=== PATIENT | male | born 1950 | race Caucasian/White ===

== ENCOUNTER 2019-11-10 16:12 | Inpatient (IN) | payer MEDICARE ==
[~2019-11-10] VITALS: Ht 180.3 cm; Wt 82.0 kg
[2019-11-10] VITALS (204 sets, daily range): BP systolic 153; BP diastolic 78; PULSE 58; TEMP 98.3; O2SAT 79–100
[~2019-11-10 16:12] MED LIST: CARDIZEM CD360 MG PO; COUMADIN 77.5 MG/TAB PO; DIGOXIN PO; MVI; TOPROL XL25 MG PO
[2019-11-10] MEDS ORDERED: LANOXIN 0.25M0.25 MG PO (17:39)
[2019-11-10] MEDS ORDERED: LASIX 40MG TABL40 MG PO (17:39)
[2019-11-10] MEDS ORDERED: PRINIVIL20 MG PO (17:39)
[2019-11-10] MEDS ORDERED: TOPROL XL 50MG50 MG PO (17:40)
[2019-11-10 17:46] LABS: BASO # 0.1 (0.0-0.2); BASO % 0.9 % (0.0-2.0); EOS # 0.1 (0.0-0.7); EOS % 0.6 % (0-4.0); GRAN # 8.3 (1.4-6.5); GRAN % 78.5 % (42.2-75.2); HEMOGLOBIN 10.3 g/dl (13.5-18.0); LYMPH # 1.2 (1.2-3.4); LYMPH % 11.3 % (20.0-51.0); MEAN CELL VOLUME 104 fl (80.0-100.0); MEAN CORPUSCULAR HEMOGLOBIN 34 pg (27.0-31.0); MEAN CORPUSCULAR HGB CONC 32 g/dl (33.0-37.0); MEAN PLATELET VOLUME 10.9 fl (7.4-10.4); MONO # 0.9 (0.1-0.6); MONO % 8.1 % (1.7-9.3); PLATELET COUNT 234 K/mm3 (130-400); RED BLOOD COUNT 3.07 M/mm3 (4.20-5.60); REDCELL DISTRIBUTION WIDTH-CV 13.5 % (11.5-14.5)
[2019-11-10 17:51] LABS: HEMATOCRIT 31.8 % (42.0-52.0)
[2019-11-10 17:55] LABS: INR 2.9 (0.8-3.0); PROTHROMBIN TIME 34.4 SECONDS (9.7-12.8)
[2019-11-10 17:57] LABS: PARTIAL THROMBOPLASTIN TIME 40.6 SECONDS (26.0-37.0)
[2019-11-10 18:01] LABS: ALBUMIN 4.1 gm/dL (3.5-5.0); BILIRUBIN,TOTAL 0.4 mg/dL (0.0-1.0); CALCIUM 8.9 mg/dL (8.4-10.2); CREATININE, serum 2.18 (0.66-1.25); MAGNESIUM 1.3 mg/dL (1.6-2.3); PHOSPHOROUS 2.3 mg/dL (2.5-4.5)
[2019-11-10 18:05] LABS: POTASSIUM 5.8 mmol/L (3.4-5.0)
--- NOTE | 2019-11-10 20:23 | NUR ---
PT arrived onto unit via ER bed accompanied by MIMI Israel and MIMI Zuñiga. PT ambulated to bed by himself, steady gait. Oriented to room and unit policies, vitals stable, will continue to monitor.
[2019-11-10 21:50] LABS: IRON,SERUM 270 ug/dL (35-150)
[2019-11-10 21:59] LABS: TOTAL IRON BINDING CAPACITY 311 ug/dL (261-462)
[2019-11-11] VITALS (1253 sets, daily range): BP systolic 112–152; BP diastolic 65–92; PULSE 56–89; TEMP 97.6–98.1; O2SAT 67–100
[2019-11-11 01:23] LABS: HEMATOCRIT 25.8 % (42.0-52.0); HEMOGLOBIN 8.6 g/dl (13.5-18.0)
[2019-11-11 07:20] LABS: BASO # 0.1 (0.0-0.2); BASO % 0.6 % (0.0-2.0); EOS # 0.1 (0.0-0.7); EOS % 0.6 % (0-4.0); GRAN # 5.7 (1.4-6.5); GRAN % 61.9 % (42.2-75.2); LYMPH # 2.1 (1.2-3.4); LYMPH % 23.1 % (20.0-51.0); MEAN CELL VOLUME 104 fl (80.0-100.0); MEAN CORPUSCULAR HGB CONC 33 g/dl (33.0-37.0); MEAN PLATELET VOLUME 10.1 fl (7.4-10.4); MONO # 1.2 (0.1-0.6); MONO % 13.3 % (1.7-9.3); PLATELET COUNT 172 K/mm3 (130-400); RED BLOOD COUNT 2.37 M/mm3 (4.20-5.60); REDCELL DISTRIBUTION WIDTH-CV 13.8 % (11.5-14.5)
[2019-11-11 07:21] LABS: HEMATOCRIT 24.6 % (42.0-52.0); HEMOGLOBIN 8.1 g/dl (13.5-18.0); MEAN CORPUSCULAR HEMOGLOBIN 34 pg (27.0-31.0)
[2019-11-11 07:26] LABS: INR 1.4 (0.8-3.0); PROTHROMBIN TIME 17.1 SECONDS (9.7-12.8)
[2019-11-11 07:37] LABS: CALCIUM 8.1 mg/dL (8.4-10.2); CREATININE, serum 2.07 (0.66-1.25); MAGNESIUM 1.8 mg/dL (1.6-2.3); PHOSPHOROUS 2.8 mg/dL (2.5-4.5); POTASSIUM 5.3 mmol/L (3.4-5.0)
--- NOTE | 2019-11-11 08:44 | NUR ---
REPORT GIVEN TO MARIO ALBERTO LE IN ENDO. ECHO BEING DONE AT THIS TIME. CONSENT NOT COMPLETED AND SIGNED AT THIS TIME A PROVIDER HAS NOT COME AND SPOKEN TO PATIENT REGARDING PROCEDURE.
--- NOTE | 2019-11-11 09:10 | NUR ---
PT TAKEN VIA WHEELCHAIR TO [facility] FOR EGD BY BRANT LE.
--- NOTE | 2019-11-11 09:43 | NUR ---
REPORT RECEIVED FROM BRANT LE IN ENDO. EGD FOUND GASTRITIS AND YARITZA ANDERSON TEAR FROM WRETCHING. PATIENT AWAKE, SLIGHTLY DROWSY. VS STABLE.
--- NOTE | 2019-11-11 09:45 | NUR ---
PT RETURNED VIA CART FROM ENDO BY BRANT LE. PT AWAKE, ALERT, AND ORIENTED. PT ABLE TO STAND AND PIVOT TO ICU BED. PT'S VS: 122/69, PULSE 72, RESP 17, O2 SAT 100% ON 2L NC.
--- NOTE | 2019-11-11 10:02 | NUR ---
Solid Waste Disposal Manager met with patient to discuss discharge planning. Patient lives in [place] with his , Renae (ph#[phone]). Patient sees Dr. Rivera for primary care and obtains medications from [facility] with no difficulties. Patient does not have any DME and reports independence with ADLS. Patient does not have Advance Directives and states his will make decisions for him if he cannot make them himself. SW to continue to follow as needed.
--- NOTE | 2019-11-11 19:30 | NUR ---
Bedside report recieved from MIMI Frausto. Patient denies nausea, vomiting, pain, or any discomfort at this time. Requests some ice water and TV guide when able.
[2019-11-11 22:30] LABS: MUCOUS Present /lpf; PH 6 (5-8); SQUAMOUS EPITHELIAL 0-2 /hpf; URINE APPEARANCE Clear; URINE BACTERIA None Seen /hpf; URINE BILIRUBIN Negative (NEGATIVE); URINE BLOOD Negative (NEGATIVE); URINE COLOR Straw; URINE GLUCOSE 1+ (NEGATIVE); URINE KETONE Negative (NEGATIVE); URINE LEUKOCYTE ESTERASE Negative (NEGATIVE); URINE NITRATE Negative (NEGATIVE); URINE PROTEIN(semi-quant) Negative (NEGATIVE); URINE RBC 0-2 /hpf; URINE UROBILINOGEN Negative (NEGATIVE)
[2019-11-11 22:31] LABS: COLLECTION METHOD CLEAN CATCH
--- NOTE | 2019-11-11 23:30 | NUR ---
Patient voiding in urinal at bedside without incident. drug safety assistant showing afib but patient denies any pain or discomfort. Patient concerned with EGD results and how to prevent another tear or bleed. Discussed alcohol consumption as well. Patient has also requested a shower mulptiple times but refused a bed bath when offered. SCDs also refused throughout the night but pleasant and cooperative.
[2019-11-12] VITALS (653 sets, daily range): BP systolic 107–152; BP diastolic 48–83; PULSE 57–89; TEMP 97.5–98.3; O2SAT 58–100
--- NOTE | 2019-11-12 05:00 | NUR ---
Patient is noted to have increased blood pressures and increased heart rate, will continue to monitor. Discussed findings with hospitalist MAGNUS-see orders. patient denies any pain or discomfort, uses urinal in bed without incident, SCDs still refused as well as bed bath.
[2019-11-12 05:30] LABS: BASO # 0.1 (0.0-0.2); BASO % 0.7 % (0.0-2.0); EOS # 0.3 (0.0-0.7); EOS % 2.9 % (0-4.0); GRAN # 7.9 (1.4-6.5); GRAN % 74.5 % (42.2-75.2); LYMPH # 1.3 (1.2-3.4); LYMPH % 12.1 % (20.0-51.0); MEAN CELL VOLUME 105 fl (80.0-100.0); MEAN CORPUSCULAR HGB CONC 32 g/dl (33.0-37.0); MEAN PLATELET VOLUME 10.9 fl (7.4-10.4); MONO % 9.2 % (1.7-9.3); PLATELET COUNT 201 K/mm3 (130-400); RED BLOOD COUNT 2.54 M/mm3 (4.20-5.60); REDCELL DISTRIBUTION WIDTH-CV 14.1 % (11.5-14.5)
[2019-11-12 05:38] LABS: CALCIUM 9.1 mg/dL (8.4-10.2); CREATININE, serum 1.49 (0.66-1.25)
[2019-11-12 06:00] LABS: HEMATOCRIT 26.7 % (42.0-52.0); HEMOGLOBIN 8.6 g/dl (13.5-18.0); MEAN CORPUSCULAR HEMOGLOBIN 34 pg (27.0-31.0)
--- NOTE | 2019-11-12 07:00 | NUR ---
BEDSIDE REPORT RECEIVED FROM MIMI DEE. PATIENT DOING WELL. HR 100s, BP ELEVATED. NO COMPLAINTS AT THIS TIME.
--- NOTE | 2019-11-12 14:59 | NUR ---
REPORT FROM MARY ELLEN AND FOUND NO CHANGE FROM PREVIOUS ASSESSMENTS. PT TO ROOM 346. PT HAD SM LOOSE BLACK TARRY STOOL ON ARRIVING ON UNIT. ASSISTED PT WITH PERICARE. TRANSFERRED TO RECLINER.
--- NOTE | 2019-11-12 20:10 | NUR ---
Pt doing well. Alert and oriented with VSS. Had EGD today and catorized bleeds. Has gout to right knee, coverd in brian wrap. x1 assist. did have a shower this evening with help of nurse. does c/o pain to that right knee. will await orders for tx for gout. stools this shift so far have not been bloody but do have mucous in them. voiding clear, yellow urine. on tele, normal sinus. denies concerns at this time. call light within reach, will continue to monitor
[2019-11-13] VITALS (10 sets, daily range): BP systolic 107–152; BP diastolic 49–69; PULSE 48–79; TEMP 97.2–98.3
--- NOTE | 2019-11-13 03:50 | NUR ---
Pt has had uneventful night. Resting in bed. Call light within reach, will continue to monitor
[2019-11-13 08:16] LABS: BASO % 0.3 % (0.0-2.0); GRAN # 10.6 (1.4-6.5); GRAN % 89.7 % (42.2-75.2); HEMATOCRIT 25.8 % (42.0-52.0); HEMOGLOBIN 8.1 g/dl (13.5-18.0); LYMPH # 0.7 (1.2-3.4); LYMPH % 6.2 % (20.0-51.0); MEAN CELL VOLUME 108 fl (80.0-100.0); MEAN CORPUSCULAR HEMOGLOBIN 34 pg (27.0-31.0); MEAN CORPUSCULAR HGB CONC 31 g/dl (33.0-37.0); MEAN PLATELET VOLUME 11.3 fl (7.4-10.4); MONO # 0.4 (0.1-0.6); MONO % 3.2 % (1.7-9.3); PLATELET COUNT 187 K/mm3 (130-400); RED BLOOD COUNT 2.39 M/mm3 (4.20-5.60); REDCELL DISTRIBUTION WIDTH-CV 14.3 % (11.5-14.5)
[2019-11-13 08:30] LABS: CALCIUM 9.3 mg/dL (8.4-10.2); CREATININE, serum 1.71 (0.66-1.25); POTASSIUM 5.1 mmol/L (3.4-5.0)
[2019-11-13] MEDS ORDERED: LANOX0.0625 PO (11:00)
[2019-11-13] MEDS ORDERED: PREDNISONE20 MG PO (11:01)
[2019-11-13] MEDS ORDERED: FOLIC ACID 11 MG/TA1 PO (11:01)
[2019-11-13] MEDS ORDERED: PROTONIX 40MG T40 MG PO (11:01)
[2019-11-13] MEDS ORDERED: DUO-KAPS1 CAP PO (11:02)
[2019-11-13] MEDS ORDERED: THIAMINE 1100 MG/TAB PO (11:02)
--- NOTE | 2019-11-13 16:45 | NUR ---
Discharge education provided to patient. Educated on when to call provider. Educated on all new medications and follow up appointments. INTs to right ac and left forarm discontinued, catheter tip intact. Denies further needs at this time. Patient out by wheelchair with spouse and surgical staff.
== END 2019-11-13 16:30 | disposition home or self-care (01) | DRG 378 ==
LOC: COL.ER 16:12 → ICU 19:01 → SURG 11-12 14:00
PROVIDERS: Emergency Medicine; Internal Medicine Gastroenterology; Physician Assistant; Student in an Organized Health Care Education/Training Program; ADMIT Hospitalist
PROC: 0DJ08ZZ Inspection of Upper Intestinal Tract, Via Natural or Artificial Opening Endoscopic (ICD-10-PCS; principal; 2019-11-11 09:00)
DX: K92.0 Hematemesis (principal); N17.9 Acute kidney failure, unspecified; K22.6 Gastro-esophageal laceration-hemorrhage syndrome; K29.70 Gastritis, unspecified, without bleeding; N18.3 Chronic kidney disease, stage 3 (moderate); K21.0 Gastro-esophageal reflux disease with esophagitis; R79.1 Abnormal coagulation profile; E87.5 Hyperkalemia; F10.10 Alcohol abuse, uncomplicated; I12.9 Hypertensive chronic kidney disease with stage 1 through stage 4 chronic kidney disease, or unspecified chronic kidney disease; Z66 Do not resuscitate; I48.91 Unspecified atrial fibrillation; E78.5 Hyperlipidemia, unspecified; I27.20 Pulmonary hypertension, unspecified; Z79.01 Long term (current) use of anticoagulants; Z87.891 Personal history of nicotine dependence; D50.0 Iron deficiency anemia secondary to blood loss (chronic)
CPT/HCPCS: 99222-AI; 99233-AI; 99239; A9500; C9113; J0360; J2060; J2354; J2405; J2704; J2785; J3430; J3475; J7030; J7040; J7512

== ENCOUNTER 2020-11-26 05:58 | Inpatient (IN) | payer MEDICARE ==
[~2020-11-26] VITALS: Ht 180.3 cm; Wt 69.6 kg
[2020-11-26] VITALS (9 sets, daily range): BP systolic 124–155; BP diastolic 69–90; PULSE 51–120; TEMP 97.5–98.5
[~2020-11-26 05:58] MED LIST changes: +DUO-KAPS1 CAP PO; +FOLIC ACID 11 MG/TA1 PO; +LANOX0.0625 PO; +LANOXIN 0.25M0.25 MG PO; +LASIX 40MG TABL40 MG PO; +PREDNISONE20 MG PO; +PRINIVIL20 MG PO; +PROTONIX 40MG T40 MG PO; +THIAMINE 1100 MG/TAB PO; +TOPROL XL 50MG50 MG PO
[2020-11-26 06:48] LABS: BASO # 0.2 (0.0-0.2); EOS % 0.1 % (0-4.0); GRAN # 13.7 (1.4-6.5); GRAN % 87.1 % (42.2-75.2); HEMOGLOBIN 11.7 g/dl (13.5-18.0); LYMPH % 6.2 % (20.0-51.0); MEAN CELL VOLUME 83 fl (80.0-100.0); MEAN CORPUSCULAR HEMOGLOBIN 27 pg (27.0-31.0); MEAN CORPUSCULAR HGB CONC 33 g/dl (33.0-37.0); MEAN PLATELET VOLUME 9.8 fl (7.4-10.4); MONO # 0.8 (0.1-0.6); MONO % 5.2 % (1.7-9.3); PLATELET COUNT 469 K/mm3 (130-400); RED BLOOD COUNT 4.32 M/mm3 (4.20-5.60); REDCELL DISTRIBUTION WIDTH-CV 14.5 % (11.5-14.5)
[2020-11-26 06:53] LABS: PROTHROMBIN TIME 33.8 SECONDS (9.7-12.8)
[2020-11-26 07:00] LABS: ALANINE AMINOTRANSFERASE 9 U/L (4-49); ALBUMIN 3.3 gm/dL (3.5-5.0); ALKALINE PHOSPHATASE 82 U/L (50-136); ANION GAP 8 mmol/L (7-16); AST,SGOT 20 U/L (15-37); BILIRUBIN,TOTAL 0.4 mg/dL (0.0-1.0); BLOOD UREA NITROGEN 27 mg/dL (9-20); C-REACTIVE PROTEIN 1.5 mg/dL (0.0-0.9); CALCIUM 9.1 mg/dL (8.4-10.2); CARBON DIOXIDE 23 mmol/L (22-30); CHLORIDE 110 mmol/L (98-107); GLUCOSE 129 mg/dL (74-106); LIPASE 214 U/L (23-300); POTASSIUM 4.6 mmol/L (3.4-5.0); SODIUM 140 mmol/L (137-145)
[2020-11-26 07:11] LABS: TROPONIN-I < 0.012 ng/mL (0.000-0.035)
[2020-11-26 07:24] LABS: HEMATOCRIT 35.9 % (42.0-52.0)
[2020-11-26] MEDS ORDERED: ONE-A-DAY ESSE1 EACH PO (08:24)
[2020-11-26] MEDS ORDERED: COUMADIN 77.5 MG/TAB PO (08:27)
[2020-11-26] MEDS ORDERED: [UNRECOGNIZED DRUG - OTHER] (08:28)
[2020-11-26] MEDS ORDERED: FLOMAX 0.40.4 MG/CAP PO (08:28)
[2020-11-26] MEDS ORDERED: VITAMIN C500 MG PO (08:29)
[2020-11-26] MEDS ORDERED: VITAMIN D31000 I1 PO (08:30)
--- NOTE | 2020-11-26 12:30 | NUR ---
Patient up from ER. Alert and oriented x 3. Assessment complete. Denies pain at this time. Edema to BLE +2 noted. Patient oriented to room. Denies further needs at this time.
--- NOTE | 2020-11-26 18:49 | NUR ---
Patient has done well throughout the day. Patient up independently in room with steady gait. Not scoring on ETOH protocol at this time. Fluids infusing per orders. States he would like to shower later tonight, prior to surgery tomorrow morning. Denies pain throughout the day. Denies further needs at this time. Will report off to account resolution analyst.
[2020-11-26 19:56] LABS: INR 1.6 (0.8-3.0); PROTHROMBIN TIME 17.5 SECONDS (9.7-12.8)
[2020-11-27] VITALS (12 sets, daily range): BP systolic 108–136; BP diastolic 56–99; PULSE 52–110; TEMP 97.8–98.4
[2020-11-27 07:11] LABS: BASO # 0.1 (0.0-0.2); BASO % 0.8 % (0.0-2.0); EOS # 0.1 (0.0-0.7); EOS % 0.7 % (0-4.0); GRAN # 6.7 (1.4-6.5); HEMOGLOBIN 11.2 g/dl (13.5-18.0); LYMPH # 1.1 (1.2-3.4); LYMPH % 12.6 % (20.0-51.0); MEAN CELL VOLUME 86 fl (80.0-100.0); MEAN CORPUSCULAR HEMOGLOBIN 27 pg (27.0-31.0); MEAN CORPUSCULAR HGB CONC 32 g/dl (33.0-37.0); MEAN PLATELET VOLUME 10.2 fl (7.4-10.4); MONO # 0.7 (0.1-0.6); MONO % 7.6 % (1.7-9.3); PLATELET COUNT 456 K/mm3 (130-400); RED BLOOD COUNT 4.13 M/mm3 (4.20-5.60); REDCELL DISTRIBUTION WIDTH-CV 14.9 % (11.5-14.5)
[2020-11-27 07:20] LABS: HEMATOCRIT 35.4 % (42.0-52.0); INR 1.2 (0.8-3.0); PROTHROMBIN TIME 13.1 SECONDS (9.7-12.8)
[2020-11-27 07:23] LABS: CALCIUM 8.8 mg/dL (8.4-10.2); CREATININE, serum 1.66 (0.66-1.25); POTASSIUM 4.3 mmol/L (3.4-5.0)
--- NOTE | 2020-11-27 07:34 | NUR ---
Patient to OR by bed. Dr. Winston in to see patient.
--- NOTE | 2020-11-27 07:39 | NUR ---
IV FLUIDS INFUSE THIS SHIFT IN L FA AT 75ML/HR OF NS. SITE WITHOUT INFILTRATION. PT ENJOYS VISITING. SLEPT OFF AND ON. AMBULATES TO BR WITH STAND BY ASSIST. SHOWER GIVEN THIS AM AT 0400 PER PT REQUEST. ANTIBIOTIC HUNG AND TAKES PO PROTONIX WITH SIP OF WATER. IV FLUIDS HUNG ON BED AND TUBING FOR SURGERY TODAY. CALL LIGHT IN REACH. REPORT GIVEN TO DAY SHIFT NURSE.
--- NOTE | 2020-11-27 12:17 | NUR ---
Chaplain chaidez and offered support with patient.
--- NOTE | 2020-11-27 13:46 | NUR ---
JAYNA (Melani) met with patient to conduct intake evaluation. Patient lives at [address] [place] [address] with his Maureen Sexton ([phone]). Patient reported no need for assistance with daily living activities and has no DME. Patient's PCP is Cedric Lantigua. Patient uses [facility] for medications. Patient does not have DPOA and is interested in the paperwork; however, he wishes to fill it out and sign it tomorrow. Patient reported, "I'm just falling asleep right now." SW will follow up with DPOA paperwork tomorrow. Patient plans to return home with upon discharge. Patient was concerned about physicians explaining his colostomy and providing instructions for care. SW will relay concerns to patient's RN. Otherwise, patient denies any questions or concerns about future discharge. Patient does not report any feelings about future discharge. Social work will continue to follow.
--- NOTE | 2020-11-27 16:09 | NUR ---
Dr. Winston in to see patient.
--- NOTE | 2020-11-27 19:08 | NUR ---
Patient has done well post op. VSS. Fraser to DD with clear joe urine present. Fluids continue infusing per orders. Patient tolerating small amounts of clear liquids. Midline incision with minimal drainage present, outline drainage at shift changed. Epirual site intact, educated patient on use of epidural. Patient having liquid output from ostomy. SCDs to BLE. Denies further needs at this time. Will report off to shift boss.
--- NOTE | 2020-11-27 21:00 | NUR ---
PT RESTING IN BED. VISITED WITH PT ON HOW TO CARE FOR OSTOMY. DENIES PAIN, REMAINS COMFORTABLE WITH EPIDURAL INFUSING AT CONT BASAL RATE OF 5 AND CLINICAL ASST 3. SCD'S ON BILAT. IV FLUIDS OF LR CONT AT 75ML/HR IN L AC. NO S/S INFILTRATION. RASCON CATH TO DD WITH CLEAR, YELLOW URINE. DRINKING WATER SLOWLY AND TOLERTING WELL. CALL LIGHT IN REACH.
--- NOTE | 2020-11-27 23:48 | NUR ---
PT AWAKE AND RESTING IN BED WITH CALL LIGHT AT SIDE. REPORT WAS GIVEN BY DAY SHIFT NURSE. DENIES ANY NEEDS. EPIDURAL INFUSING. SCD'S ON BILAT.
[2020-11-28] VITALS (7 sets, daily range): BP systolic 110–129; BP diastolic 54–88; PULSE 75–108; TEMP 97.7–98.7
--- NOTE | 2020-11-28 03:47 | NUR ---
PT'S 1800 MED WAS NOT GIVEN UNTIL 2100 AND THE NEXT DOSE AT 0300.
--- NOTE | 2020-11-28 04:02 | NUR ---
O2 ON AT 1 1/2L WITH SATS INCREASING TO 97-100%
[2020-11-28 05:34] LABS: PH 5 (5-8); SQUAMOUS EPITHELIAL 0-2 /hpf; URINE APPEARANCE Hazy; URINE BACTERIA None Seen /hpf; URINE BILIRUBIN Negative (NEGATIVE); URINE BLOOD Negative (NEGATIVE); URINE COLOR Yellow; URINE GLUCOSE Negative (NEGATIVE); URINE KETONE Negative (NEGATIVE); URINE LEUKOCYTE ESTERASE Trace (NEGATIVE); URINE NITRATE Negative (NEGATIVE); URINE PROTEIN(semi-quant) Negative (NEGATIVE); URINE UROBILINOGEN Negative (NEGATIVE)
[2020-11-28 05:47] LABS: COLLECTION METHOD CLEAN CATCH
[2020-11-28 07:05] LABS: BASO # 0.1 (0.0-0.2); BASO % 0.6 % (0.0-2.0); EOS % 0.2 % (0-4.0); GRAN # 9.3 (1.4-6.5); GRAN % 79.9 % (42.2-75.2); HEMOGLOBIN 10.3 g/dl (13.5-18.0); LYMPH # 0.8 (1.2-3.4); MEAN CELL VOLUME 85 fl (80.0-100.0); MEAN CORPUSCULAR HEMOGLOBIN 27 pg (27.0-31.0); MEAN CORPUSCULAR HGB CONC 32 g/dl (33.0-37.0); MEAN PLATELET VOLUME 10.5 fl (7.4-10.4); MONO # 1.4 (0.1-0.6); PLATELET COUNT 396 K/mm3 (130-400); RED BLOOD COUNT 3.81 M/mm3 (4.20-5.60); REDCELL DISTRIBUTION WIDTH-CV 14.9 % (11.5-14.5)
[2020-11-28 07:17] LABS: CALCIUM 8.2 mg/dL (8.4-10.2); CREATININE, serum 1.78 (0.66-1.25); POTASSIUM 4.6 mmol/L (3.4-5.0)
[2020-11-28 07:27] LABS: HEMATOCRIT 32.2 % (42.0-52.0)
--- NOTE | 2020-11-28 07:36 | NUR ---
PT VERY PLEASANT. HAS MANY QUESTIONS ABOUT CARE OF HIS OSTOMY. USES O2 AT 1L/NC. RASCON DRAINING CLEAR YELLOW URINE. SCD'S ON BILAT. LR INFUSING AT 75ML/HR. BLOODY LIQUIS DRAINED FROM OSTOMY. 325ML FROM OSTOMY. EPIDURAL CONT. PT CONFORTABLE THIS AM. CALL LIGHT IN REACH.
--- NOTE | 2020-11-28 10:05 | NUR ---
Patient sitting up in chair. He was one assist with gaitbelt. He did have some lightheadness/dizzyness upon standing. He had sips of applejuice for breakfast, reporting some nausea. He is belching. Iv to int per orders. Dorsey to DD. Midline incision, dressing intact. Ostomy appliacen intact. Stoma edema noted. Abdomen distended. EPidural for pain mangement, Dressing CDI to back. Fresh linens provided, Patient provided his own dorsey care with instructions & underwear on. bed bath and lotion to skin.
--- NOTE | 2020-11-28 10:52 | NUR ---
Patient continues to sit up in chair. He continues to be belching/slightly nauseated. made aware. Will slow po intake. Patient provided with stoma education. New 2.75 wafer used. Cut to 55mm, stoma very edemoutous. skin tender, slightly reddened, no open areas. 50mls of watery mucous emptied. Midline dressing remains intact. Abdomen distended. Slightly firm. Patietn reading through some of the materials provided, but falls asleep easy.
--- NOTE | 2020-11-28 12:27 | NUR ---
Patient assisted back to bed, he is ready to take and afternoon nap. Epidural for pain mangement. He had a few bites of pudding for lunch, continues to have belching. Stoma with small amount of watery output since the appliance changed. Abdomen remains distended. Will continue to closely monitor.
--- NOTE | 2020-11-28 13:25 | NUR ---
Anesthesia notifed about patient nedding orders for epidrual, orer set was entered by Nathan in Anesthesia.
--- NOTE | 2020-11-28 14:20 | NUR ---
SW called by physican to request SW's assistance at specifically at 9am on 11/29/19 in patient's room for a call being placed to patient's in regards to continued care. JAYNA will notify on coming SW staff to assist with patient plan of care with physician. JAYNA will continue to follow.
--- NOTE | 2020-11-28 16:51 | NUR ---
Sat and listened to patient talk for awhile. 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 He reports feeling anxious. Has a upset stomach he thinks from the bad news he has heard today. He states he has alot going on in his mind, worried about leaving his with too much. He doesn't want to tell his children. He is looking forward to family meeting tmrw to discuss things. Zofran was given for nausea & P[place]nergan was also offered. Scds ble. Epdirual manages pain, using supervisor fiberglass boat assembly as needed. Will monitor.
--- NOTE | 2020-11-28 19:30 | NUR ---
Received report from MIMI Nava. Pt is currently lying in bed and has no complaints at this time. He stated that he has been able to nap a little. Pt has a clear drainage from ostomy bag. Ostomy still show edema. Pt urine is yellow and clear. Pt has his call light within reach and his bed is lowest position.
--- NOTE | 2020-11-28 19:41 | NUR ---
Patient sat up and had chocolate ice cream for dinner, enjoyed it. He then reported nausea. Phenergan Prn. He contineus to use epidural for pain management. Ostomy with only a little watery output today. Stoma remains edematous. appliance intact. Scds ble. Int. Report to [place] to resume cares.
[2020-11-29] VITALS (7 sets, daily range): BP systolic 121–160; BP diastolic 68–91; PULSE 68–120; TEMP 97.4–98.8
--- NOTE | 2020-11-29 01:00 | NUR ---
Pt currently sleeping in bed and has no concerns at this time. Pt has his call light within reach.
--- NOTE | 2020-11-29 05:31 | NUR ---
Pt has been having some nausea so pt was given nausea medication at this time and fresh ice water. Pt has his call light within reach and his bed is in lowest position.
--- NOTE | 2020-11-29 07:00 | NUR ---
Pt resting in bed. Pt has his call light within reach.
[2020-11-29 07:22] LABS: HEMOGLOBIN 10.6 g/dl (13.5-18.0); MEAN CELL VOLUME 84 fl (80.0-100.0); MEAN CORPUSCULAR HEMOGLOBIN 27 pg (27.0-31.0); MEAN CORPUSCULAR HGB CONC 32 g/dl (33.0-37.0); MEAN PLATELET VOLUME 10.4 fl (7.4-10.4); PLATELET COUNT 400 K/mm3 (130-400); RED BLOOD COUNT 3.94 M/mm3 (4.20-5.60)
[2020-11-29 07:24] LABS: CALCIUM 8.6 mg/dL (8.4-10.2); CREATININE, serum 1.96 (0.66-1.25); POTASSIUM 4.7 mmol/L (3.4-5.0)
[2020-11-29 07:25] LABS: HEMATOCRIT 33.1 % (42.0-52.0)
[2020-11-29 08:29] LABS: BAND 25 % (0-10); LYMPHOCYTE 9 % (20.0-51.0); NEUTROPHILS 51 % (42.0-75.2)
[2020-11-29 08:30] LABS: ANISOCYTOSIS 1+; PLATELET ESTIMATE NORMAL (NORMAL)
--- NOTE | 2020-11-29 08:30 | NUR ---
Patient in bed resting. Alert and oriented x 3. Assessment complete. Denies pain at this time. Patient states he is having mild nausea at this time. Epidural in place. SCDs to BLE. Midline incision with old drainage present. Ostomy to right quandrant with liquid output noted, stoma appears red and protruding. Fraser to DD. Edema to BLE +2 pitting. Denies further needs at this itme.
--- NOTE | 2020-11-29 09:58 | NUR ---
Initial visit; Patient thanked for coming in and visiting. He states that he likes the company. Telephone Worker offers God's blessings and will keep Mati in her prayers.
--- NOTE | 2020-11-29 10:15 | NUR ---
Contacted Dr. Samuels for consult.
--- NOTE | 2020-11-29 11:51 | NUR ---
I met with patient after the treatment team rounded. He is willing to talk with oncology to see what options for treatment would be available. He is still thinking that he would want comfort care but is willing to talk with oncology. Support provided as we talked about oncology care vs hospice care and what each might look like.
--- NOTE | 2020-11-29 13:20 | NUR ---
I spoke with Renae Sexton by phone when she returned my call. She is very clear that she will support her 's decision--whatever it is but she is glad that he has agreed to talk with the oncologist. Options for comfort/hospice care were discussed. Questions about quality of life with chemotherapy were brought up. Support provided to her and advised I will follow up with Mati again the morning.
--- NOTE | 2020-11-29 19:23 | NUR ---
Patient has done well throughout the day. Has been up to recliner throughout the afternoon. Denies further nausea at this time, but states he has been unable to tolerate much to eat today. Fraser to DD with clear joe urine present. Epidural intact. Denies further needs at this time. Will report off to multiple drum sander.
--- NOTE | 2020-11-29 20:30 | NUR ---
PT IN BED. IS ALERT AND ORIENTED X4. HAS IVF INFUSING TO LEFT AC WITHOUT REDNESS OR SWELLING. HAS EPIDURAL INFUSING, BACK SITE INTACT. REPORTS NO APPETITE. HAS RT ILEOSTOMY WITH BEEFY RED STOMA AND CLEAR FLUID DRAINING. HAS XIN TO MIDLINE WITH ABD INTACT. RASCON TO BSD WITH YELLOW URINE NOTED. REPORTS HE HASN'T BEEN DRINKING LIQUIDS LIKE HE SHOULD. WILL MONITOR FOR CHANGES.
--- NOTE | 2020-11-29 23:36 | NUR ---
HAVING HICCUPS, MEDICATED WITH ZOFRAN FOR ACID AND NAUSEA.
[2020-11-30 04:26] VITALS: BP 122/90; PULSE 112; TEMP 97.6
[2020-11-30 07:49] LABS: HEMATOCRIT 34.3 % (42.0-52.0); HEMOGLOBIN 11.1 g/dl (13.5-18.0); MEAN CELL VOLUME 83 fl (80.0-100.0); MEAN CORPUSCULAR HEMOGLOBIN 27 pg (27.0-31.0); MEAN CORPUSCULAR HGB CONC 32 g/dl (33.0-37.0); MEAN PLATELET VOLUME 10.7 fl (7.4-10.4); PLATELET COUNT 396 K/mm3 (130-400); RED BLOOD COUNT 4.14 M/mm3 (4.20-5.60); REDCELL DISTRIBUTION WIDTH-CV 14.9 % (11.5-14.5)
[2020-11-30 07:59] VITALS: BP 126/81; PULSE 112; TEMP 97.7
--- NOTE | 2020-11-30 08:00 | NUR ---
Patient in bed resting. Alert and oriented x 3. Assessment complete. Denies pain at this time. Epidural site intact. Fraser to DD with clear joe urine present. Patient states he is still unable to tolerate much to drink at this time. Ileostomy to right quadrant with clear liquid output noted, midline incision with old drainage present. SCDs to BLE. Denies further needs at this time.
[2020-11-30 08:22] LABS: CALCIUM 8.7 mg/dL (8.4-10.2); CREATININE, serum 1.84 (0.66-1.25); POTASSIUM 4.5 mmol/L (3.4-5.0)
[2020-11-30 11:41] VITALS: BP 126/81; PULSE 113; TEMP 97.9
--- NOTE | 2020-11-30 11:52 | NUR ---
Epidural discontinued per orders, catheter tip intact. Bandaid applied to site. Premedicated patient with norco. Denies needs at this time.
--- NOTE | 2020-11-30 14:20 | NUR ---
I spoke with Mati this morning about his goals of care after he had spoken with Dr Samuels. He remains very firm that he wants to pursue hospice at home when he leaves the hospital and is not interested in pursuing treatment. We reviewed the different hospice organizations in the [place] area and he has selected [facility]. He is hoping to remain at home but is willing to go to [facility] if things get to be too much for his at home. He is thinking that a hospital bed would allow him to rest more comfortably with his head elevated. He is currently on oxygen by [place] at 4L/nc now but not sure what his home needs will be. He and his will continue to need ostomy instruction and supplies. Dariela at [facility] indicated that they could do an afternoon admission tomorrow. I relayed this to Sarah the dialysis social worker and also to his Renae. This is in line with Dr Arcos's plan for discharge.
--- NOTE | 2020-11-30 15:51 | NUR ---
I recieved a call from Shruti, , who reports that pt is telling her is not ready to come home yet. He is experiencing more pain and bloated feeling this afternoon. I did speak with Dariela at [facility], and she reports that they can do an admission either afternoon or Sunday, if tomorrow doesn't work. I did talk with Shruti by phone and shared this information and I spoke with Mati and relayed his discomfort to his nurse as comfort care orders were "going to be entered". I also relayed this to Velvet MG. Discharge may depend on pain management issues.
[2020-11-30 16:03] VITALS: BP 145/77; PULSE 93; TEMP 97.7
--- NOTE | 2020-11-30 17:18 | NUR ---
Manager [employer] collaborated with Rosey Palliative RN who advised patient would like to return home on hospice with [facility] providing services. Rosey advised she contacted Dariela with [facility] then faxed referral. Rosey reports patient does not feel comfortable with discharge tomorrow as he has concerns about pain control. Rosey advised [facility] can accept for services once patient is ready for discharge.
--- NOTE | 2020-11-30 18:36 | NUR ---
Patient having increased pain throughout the day since epidural out, states his abdomen feels tight and bloated. Having hiccups and burping constantly throughout the day. Increased output from ostomy. Fraser maintained to DD with clear joe urine present. SCDs to BLE. Bedbath provided this afternoon. Denies further needs at this time. Will report off to slot shift manager.
[2020-11-30 20:30] VITALS: BP 121/77; PULSE 90; TEMP 98.1
--- NOTE | 2020-11-30 21:25 | NUR ---
Reports more pain to abdomen. Abd is firm with hypoactive BS. Ileostomy with cabrera drainage in appliance bag. Medicated with Roxanol 20mg po and Ativan 1mg po for rest. SL to left AC without redness or swelling. Wearing oxygen. Has midline with constance intact. Fraser to BSD with yellow urine.
[2020-12-01 08:00] VITALS: BP 156/68; PULSE 149; TEMP 98.5
--- NOTE | 2020-12-01 08:05 | NUR ---
rounded. Concerns for stroke or aspiration. Saba lim/hospitalist notified. Approval for to see patient. She was called not made aware of change in status. Nicanor & social work also made aware of patient status. Elevated irregular heart rate. Increased O2 needs, lung coarse. Minimally responsive.
--- NOTE | 2020-12-01 08:50 | NUR ---
Patient at bedside. rounded. Nicanor rounded. Rosey Hagan in to see family. Roxnol given
--- NOTE | 2020-12-01 09:54 | NUR ---
Follow-up visit; Patient was unable to respond though Internet Technology Manager offered prayer for him and comfort for for him and his .
--- NOTE | 2020-12-01 10:40 | NUR ---
Patient provided with Full bed bath & hygiene. Repositioned. He contineus to be minimally responsive. at bedside.
--- NOTE | 2020-12-01 12:07 | NUR ---
Called to pt's room as he is reported to be actively dying this morning. Support was provided to his , who was at bedside. Pt has labored breathing with rattle noted. The dying process was discussed with who is dealing with a very recent diagnosis of cancer and now an anticipated . She was receptive to a comfort care quilt being placed on the bed. She has called their children and they are expected here soon. Pt does not seem responsive to touch or sound but occasionally will respond slightly especially to his 's voice.
--- NOTE | 2020-12-01 17:00 | NUR ---
Went to check in on patient, patient at bedside. Children have went home. As we were in room patient took his last breath. Lynsey with hospitalist rounded & pronounce. film editor supervisor notifed.
--- NOTE | 2020-12-01 17:25 | NUR ---
Call placed to [facility]. Patient not a candidate for tissue donation due to cancer dx. Will await call from [facility] for further instruction. Ice placed on eyes with saline qtts. Case # [id number]. Patients has chosen [facility] for home.
--- NOTE | 2020-12-01 17:30 | NUR ---
Patient provided with post mortom care. ice pack to eyes. Patient ambulated out with all patient belogings.
--- NOTE | 2020-12-01 17:51 | NUR ---
Recieved a call from [facility]. He is a candidate for eye donation. Will await call from them for further instructions. [id number] notified of patients .
--- NOTE | 2020-12-01 20:15 | NUR ---
Pt.'s body with ice to eyes, waiting on decision for donation. This nurse will await decisions.
--- NOTE | 2020-12-01 22:06 | NUR ---
sevices here at this time. Body released to director of casino marketing.
== END 2020-12-01 22:07 | disposition expired | DRG 330 ==
LOC: COL.ER 05:58 → SURG 10:16
PROVIDERS: Emergency Medicine; Physician Assistant; Surgery; ADMIT Hospitalist
PROC: 0D1B0Z4 Bypass Ileum to Cutaneous, Open Approach (ICD-10-PCS; principal; 2020-11-26)
PROC: 0DBU0ZX Excision of Omentum, Open Approach, Diagnostic (ICD-10-PCS; 2020-11-26)
PROC: 0DB68ZX Excision of Stomach, Via Natural or Artificial Opening Endoscopic, Diagnostic (ICD-10-PCS; 2020-11-26)
DX: C16.9 Malignant neoplasm of stomach, unspecified (principal); C78.6 Secondary malignant neoplasm of retroperitoneum and peritoneum; I48.20 Chronic atrial fibrillation, unspecified; N13.30 Unspecified hydronephrosis; R18.8 Other ascites; C78.5 Secondary malignant neoplasm of large intestine and rectum; K56.600 Partial intestinal obstruction, unspecified as to cause; Z66 Do not resuscitate; Z51.5 Encounter for palliative care; N18.30 Chronic kidney disease, stage 3 unspecified; I27.20 Pulmonary hypertension, unspecified; I12.9 Hypertensive chronic kidney disease with stage 1 through stage 4 chronic kidney disease, or unspecified chronic kidney disease; D64.9 Anemia, unspecified; N40.0 Benign prostatic hyperplasia without lower urinary tract symptoms; D47.3 Essential (hemorrhagic) thrombocythemia; E11.22 Type 2 diabetes mellitus with diabetic chronic kidney disease; Z79.01 Long term (current) use of anticoagulants; Z87.891 Personal history of nicotine dependence; Z20.822 Contact with and (suspected) exposure to COVID-19
CPT/HCPCS: 99223-AI; 99232-AI; 99233-AI; 99239; A4314; J0330; J0690; J2250; J2270; J2370; J2405; J2550; J2704; J2710; J3010; J3430; J3480; J7030; J7120